=== PATIENT | female | born 1990 | race Native Hawaiian/Other Pacific Islander ===

== ENCOUNTER 2017-07-25 13:36 | Emergency (ER) | payer BC ==
[2017-07-25 13:52] VITALS: RESP 18; O2SAT 98
--- NOTE | 2017-07-25 15:23 | CT ---
PROCEDURE: CT NECK WITHOUT CONTRAST HISTORY: swallowed chicken bone yesterday, pain at the R COMPARISON: None. TECHNIQUE: CT of the neck without intravenous contrast. Coronal and sagittal reformats generated. Radiation dose: DLP 315.65 mGy-cm This CT exam was performed using one or more of the following dose reduction techniques: Automated exposure control, adjustment of the mA and/or kV according to patient size, and/or use of iterative reconstruction technique. FINDINGS: In the region of the right side of the posterior timing approaching the upper extent of the lingual tonsils, there is a 3.5 mm calcification, appearing ovoid in shape and is well-circumscribed. Clinically correlate as for whether this reflects no retained chicken bone fragment though this may simply represent postinflammatory or postinfectious lymphoid calcification. Remainder the pharynx is unremarkable as well as the larynx and visualized trachea. No additional suspicious radiodensities are seen within the oral cavity although dental hardware related artifact obscure the oral cavity somewhat. The visualized upper esophagus is remarkable for trace retained gas and fluid at the segment immediately cephalad to the aortic arch with no retained radiodensities to suggest impacted, ingested bone. No suspicious emphysematous changes are identified either and there is no suspicious fluid collection throughout the supra or infrahyoid neck soft tissues. MASS: None grossly evident. Lack of intravenous contrast limits sensitivity of this examination. GLANDS: Parotid and submandibular glands unremarkable. The thyroid gland is mildly inhomogeneous but normal in size without focal cystic or solid mass demonstrated. LYMPH NODES: No significant lymphadenopathy appreciated throughout the exam. CERVICAL SPINE: Straightened cervical curvature. No suspicious lytic or blastic changes identified. OTHER FINDINGS: None. IMPRESSION: A 3.5 mm calcific density seen at the right posterior tongue approaching the uppermost extent of the potential lingual tonsils. Clinically correlate for the patient's pain signature as to whether this is a possible small chicken bone fragment, given clinical history, though this simply may represent calcification within lymphoid tissue. No additional pattern to suggest retained ingested bony fragment. Mild inhomogeneity within the bilateral thyroid parenchyma without focal cystic or solid mass appreciable.
--- NOTE | 2017-07-25 16:14 | C.PDOC ---
History Of Present Illness 26 y/o female presents to the ER for evaluation after she was eating and swallowed a chicken bone yesterday. Patient states that she feels like the chicken bone is stuck inside the right side of her throat. Patient reports that she went to [facility] today and she had X-rays which were found to be negative. The staff at [facility] advised her to see Dr. Maier, ENT. Dr. Maier did not see any abnormal findings upon examination so he decided to send her to the ER for a CAT Scan. Time Seen by Provider: 07/25/17 13:54 Chief Complaint (Nursing): Foreign Body History Per: Patient History/Exam Limitations: no limitations Onset/Duration Of Symptoms: Days Current Symptoms Are (Timing): Still Present Severity: Moderate Past Medical History Reviewed: Historical Data, Nursing Documentation, Vital Signs Vital Signs: Last Vital Signs Temp 97.6 F 07/25/17 19:00 Pulse 85 07/25/17 19:00 Resp 18 07/25/17 19:00 BP 135/75 07/25/17 19:00 Pulse Ox 98 07/25/17 20:58 - Medical History PMH: Bipolar Disorder Surgical History: Tonsillectomy Family History: States: No Known Family Hx - Social History Hx Alcohol Use: No Hx Substance Use: No - Immunization History Hx Tetanus Toxoid Vaccination: No Hx Influenza Vaccination: No Hx Pneumococcal Vaccination: No Review Of Systems Except As Marked, All Systems Reviewed And Found Negative. Constitutional: Negative for: Fever, Chills ENT: Positive for: Other (foreign body stuck in throat) Physical Exam - Physical Exam Appears: Non-toxic, No Acute Distress Skin: Normal Color, Warm, Dry Head: Atraumatic, Normacephalic Eye(s): bilateral: Normal Inspection Nose: Normal Oral Mucosa: Moist Throat: Normal, No Erythema, No Exudate Neck: Supple Chest: Symmetrical Cardiovascular: Rhythm Regular Respiratory: Normal Breath Sounds, No Rales, No Rhonchi, No Wheezing, Other ( speaking in full sentences) Extremity: Normal ROM Neurological/Psych: Oriented x3, Normal Speech, Normal Motor, Normal Sensation ED Course And Treatment - Laboratory Results Result Diagrams: 07/25/17 16:56 07/25/17 16:56 O2 Sat by Pulse Oximetry: 98 (RA) Pulse Ox Interpretation: Normal - CT Scan/US CT-Neck Soft Tissue Other Rad Studies (CT/US): Read By Radiologist, Radiology Report Reviewed CT/US Interpretation: PROCEDURE: CT NECK WITHOUT CONTRAST. HISTORY: swallowed chicken bone yesterday, pain at the R. COMPARISON: None. TECHNIQUE : CT of the neck without intravenous contrast. Coronal and sagittal reformats generated. Radiation dose: DLP 315.65 mGy-cm. This CT exam was performed using one or more of the following dose reduction techniques: Automated exposure control, adjustment of the mA and/or kV according to patient size, and/ or use of iterative reconstruction technique. FINDINGS: In the region of the right side of the posterior timing approaching the upper extent of the lingual tonsils, there is a 3.5 mm calcification, appearing ovoid in shape and is well- circumscribed. Clinically correlate as for whether this reflects no retained chicken bone fragment though this may simply represent postinflammatory or postinfectious lymphoid calcification. Remainder the pharynx is unremarkable as well as the larynx and visualized trachea. No additional suspicious radiodensities are seen within the oral cavity although dental hardware related artifact obscure the oral cavity somewhat. The visualized upper esophagus is remarkable for trace retained gas and fluid at the segment immediately cephalad to the aortic arch with no retained radiodensities to suggest impacted, ingested bone. No suspicious emphysematous changes are identified either and there is no suspicious fluid collection throughout the supra or infrahyoid neck soft tissues. MASS: None grossly evident. Lack of intravenous contrast limits sensitivity of this examination. GLANDS: Parotid and submandibular glands unremarkable. The thyroid gland is mildly inhomogeneous but normal in size without focal cystic or solid mass demonstrated. LYMPH NODES: No significant lymphadenopathy appreciated throughout the exam. CERVICAL SPINE: Straightened cervical curvature. No suspicious lytic or blastic changes identified. OTHER FINDINGS: None. IMPRESSION: A 3.5 mm calcific density seen at the right posterior tongue approaching the uppermost extent of the potential lingual tonsils. Clinically correlate for the patient's pain signature as to whether this is a possible small chicken bone fragment, given clinical history, though this simply may represent calcification within lymphoid tissue. No additional pattern to suggest retained ingested bony fragment. Mild inhomogeneity within the bilateral thyroid parenchyma without focal cystic or solid mass appreciable. Progress Note: CT-Neck Soft Tissue and POC Urine Test ordered and reviewed. evaluated patient and spoke to the radiologist about the CT results. Dr. Maier reccommended the patient be discharged home and follow up with him in his office in 1 week. Disposition - Disposition Referrals: Ranjeet Maier MD [Staff Provider] - Disposition: HOME/ ROUTINE Disposition Time: 18:03 Condition: STABLE Additional Instructions: Follow up with PMD and ENT in 1 week. Return to [facility] if feel worse. Instructions: Foreign Body, Swallowed, Adult (DC) Forms: [employer] (Czech) - Clinical Impression Clinical Impression: Sensation of foreign body in throat - PA / IT AUDITOR / Resident Statement MD/DO has reviewed & agrees with the documentation as recorded. - Scribe Statement The provider has reviewed the documentation as recorded by the Chad Epps Provider Attestation All medical record entries made by the Eusebiaibe were at my direction and personally dictated by me. I have reviewed the chart and agree that the record accurately reflects my personal performance of the history, physical exam, medical decision making, and the department course for this patient. I have also personally directed, reviewed, and agree with the discharge instructions and disposition.
[2017-07-25 17:00] LABS: BASO % 0.7 % (0.0-2.0); EOS % 0.6 % (0.0-4.0); HEMOGLOBIN 14.8 g/dL (11.0-16.0); LYMPH % 33.7 % (20.0-40.0); MEAN CELL VOLUME 94.8 fL (81.0-99.0); MEAN CORPUSCULAR HEMOGLOBIN 31.6 pg (27.0-31.0); MEAN CORPUSCULAR HGB CONC 33.4 g/dL (33.0-37.0); MEAN PLATELET VOLUME 7.7 fL (7.2-11.7); MONO # 0.4 K/uL (0.0-0.8); MONO % 6.8 % (0.0-10.0); NEUT # 3.4 K/uL (1.8-7.0); NEUT % 58.2 % (50.0-75.0); NRBC % 0.1 % (0.0-2.0); RBC 4.67 Mil/uL (3.80-5.20); RED CELL DISTRIBUTION WIDTH 12.6 % (11.5-14.5); WHITE BLOOD COUNT 5.8 K/uL (4.8-10.8)
[2017-07-25 17:07] LABS: INR 0.9
[2017-07-25 17:21] LABS: BLOOD UREA NITROGEN 11 mg/dL (7-17); CALCIUM 9.7 mg/dl (8.6-10.4); GFR AFRICAN-AMERICAN > 60; GFR NON-AFRICAN AMERICAN > 60
[2017-07-25 19:00] VITALS: BP 135/75; PULSE 85; TEMP 97.6
== END 2017-07-25 19:00 | disposition home or self-care (01) ==
LOC: C.ER 13:36
DX: R09.89 Other specified symptoms and signs involving the circulatory and respiratory systems (principal)